=== PATIENT | female | born 1990 | race Caucasian/White ===

== ENCOUNTER 2022-11-26 16:29 | Emergency (ER) | payer BC, SELFPAY ==
[2022-11-26] VITALS (10 sets, daily range): BP systolic 121–148; BP diastolic 82–92; PULSE 83–102; RESP 12–20; TEMP 36.4; O2SAT 97–100
--- NOTE | ~2022-11-26 | CT_ITS ---
EXAMINATION: CTA chest PE protocol DATE: 11/26/2022 20:39 INDICATION: Midsternal chest pain. TECHNIQUE: Computed tomography angiography (CTA) of the chest was performed with 100 mL Omnipaque-350 intravenous contrast timed to evaluate the pulmonary arteries. Coronal maximum intensity projection 3D-reconstructions were created by the technologist. Automated exposure control and iterative reconst ruction technique were employed. The dose-length product was 598.94 mGy-cm. COMPARISON: CT abdomen and pelvis 07/30/2019 FINDINGS: There is mild dependent atelectasis bilaterally. No pleural effusion. The heart size is nor mal. No pericardial effusion. There is a small sliding hiatal hernia. There is mild thoracic spondylo sis. IMPRESSION: 1. No pulmonary embolus. Reviewed, dictated and finalized at location A. AINABILITY CONSULTANT IMPRESSION: 1. No pulmonary embolus.
--- NOTE | ~2022-11-26 | XR_ITS ---
EXAMINATION: XR chest 2V DATE: 11/26/2022 17:19 INDICATION: Midsternal chest pain. TECHNIQUE: Frontal and lateral views of the chest were obtained. COMPARISON: Chest 2 views 12/18/2005 FINDINGS: The chest demonstrates clear lungs without pneumonia, pleural effusion, or pneumothorax. Th e heart size is normal. IMPRESSION: 1. No acute cardiopulmonary disease. Reviewed, dictated and finalized at location A. FOREMAN
--- NOTE | 2022-11-26 16:30 | ECG_ITS ---
Measurements Intervals [place] Rate: 93 P: 39 RI: 148 QRS: 46 QRSD: 92 T: 24 QT: 353 QTc: 440 Interpretive Statements SINUS RHYTHM NORMAL ECG NO PREVIOUS ECG AVAILABLE FOR COMPARISON Electronically Signed On 11-27-2022 7:51:12 CEMENT CAR DUMPER by Meliton Vizcaino M.D.
[2022-11-26 16:47] LABS: Basophils Percent Auto 0.2 % (0.2-1.2); Eosinophils Absolute Auto 0.1 K/mm3 (0-0.3); Eosinophils Percent Auto 1.6 % (0-4.4); Hematocrit 41.1 % (37.0-47.0); Hemoglobin 14.3 g/dL (12.0-15.0); Immature Granulocyte Absolute 0.01 K/mm3 (0.00-0.031); Immature Granulocyte Percent A 0.1 % (0-0.5); Lymphocytes Absolute Auto 2.74 K/mm3 (0.9-3.2); Mean Corpuscular HGB Conc 34.8 g/dl (32-36); Mean Corpuscular Hemoglobin 31.2 pg (26-34); Mean Corpuscular Volume 89.5 fl (80-100); Mean Platelet Volume 9.3 fl (7.4-10.4); Monocytes Absolute Auto 0.6 K/mm3 (0.1-0.6); Monocytes Percent Auto 7.8 % (2.6-8.5); Neutrophils Absolute Auto 4.5 K/mm3 (1.3-6.7); Neutrophils Percent Auto 56.3 % (45.5-73.1); Platelet Count Result 241 k/mm3 (150-375); Red Blood Count 4.59 M/mm3 (4.2-5.4); Red Cell Distribution Width 12.2 % (11.5-14.5); White Blood Count 8.1 K/mm3 (4.5-10.0)
[2022-11-26 16:58] LABS: Partial Thromboplastin Time 26.6 SECONDS (22.3-36.8); Prothrombin Time 12.6 Seconds (11.1-14.7)
[2022-11-26 17:00] LABS: Alanine Aminotransferase 32 U/L (6-35); Albumin Level 4.5 g/dL (3.5-5.1); Alkaline Phosphatase 82 U/L (38-126); Anion Gap 5 mmol/L (8-16); Aspartate Amino Transferase 26 U/L (14-36); Bilirubin,Total 0.7 mg/dL (0.2-1.3); Blood Urea Nitrogen 12 mg/dL (7-17); Calcium 8.8 mg/dL (8.4-10.2); Carbon Dioxide 29 mmol/L (22-30); Chloride 101 mmol/L (98-107); Estimated CRCL calculation 87 ml/min; Estimated Glomerular Filt Rate > 60; Glucose 82 mg/dL (65-110); Lipase 98 U/L (23-300); Potassium 3.8 mmol/L (3.4-5.0); Sodium 135 mmol/L (137-145)
[2022-11-26 17:12] LABS: Troponin I < 0.012 ng/mL (0.000-0.034)
[2022-11-26] MEDS: ASPIRIN 81 MG CHEWABLE TABLET 324 MG PO (18:38)
--- NOTE | 2022-11-26 19:12 | PC.NURSE ---
Assumed pt care from ZACKARY Petersen
--- NOTE | 2022-11-26 19:40 | ED.GENADULT ---
HPI - General Adult General Chief complaint: Chest Pain Stated complaint: chest pain Time Seen by Provider: 11/26/22 19:26 History of Present Illness HPI narrative: Patient 32-year-old female who presents the emergency department with chief complaint of chest pain. Patient reports for the last several days she has been having pain in her chest mostly on the right sternal border. The patient states pain is worse with inspiration and worse with movement. Patient denies trauma denies fever denies cough patient reports no diaphoresis reports that she does have an uncomfortable feeling in her back. Patient denies prior cardiac disease reports no family history of early cardiac disease Related Data Allergies Allergy/AdvReac Type Severity Reaction Status Date / Time No Known Drug Allergies Allergy Unknown Unknown Verified 11/26/22 18:56 Review of Systems Review of Systems: A 10 system review of systems was completed on the patient and is negative except for what is stated in the HPI. Nursing and ancillary documentation was reviewed. Exam Narrative: GENERAL: Well-appearing, well-nourished, and in no acute distress. HEAD: Normocephalic, atraumatic. EYES: PERRLA and EOMI. ENT: Nares clear, no rhinorrhea or epistaxis. Mucous membranes moist. NECK: Supple. CHEST: Clear to auscultation. No respiratory distress. Tenderness to palpation of the right sternal border HEART: Regular rate and rhythm. No murmur heard. Normal peripheral pulses. ABDOMEN: Soft, nontender, nondistended, normal active bowel sounds. EXTREMITIES: Normal range of motion. No edema. SKIN: Warm, dry, no rash. NEURO: No focal deficits. Alert and oriented x3. PSYCH: Normal mood and affect. Course Vital Signs Vital signs: Vital Signs Temperature 36.4 C 11/26/22 16:30 Pulse Rate 88 11/26/22 16:30 Respiratory Rate 18 11/26/22 16:30 Blood Pressure 148/88 H 11/26/22 16:30 Pulse Oximetry 100 11/26/22 16:30 Oxygen Delivery Room Air 11/26/22 16:30 Temperature 36.4 C 11/26/22 16:30 Pulse Rate 86 11/26/22 20:01 Respiratory Rate 12 11/26/22 20:01 Blood Pressure 123/82 11/26/22 20:01 Pulse Oximetry 98 11/26/22 20:01 Oxygen Delivery Room Air 11/26/22 18:33 Medical Decision Making MDM Narrative Medical decision making narrative: Differential diagnosis includes ACS, pleurisy, chest wall pain, costochondritis, pulmonary embolism. EKG interpreted by me as sinus rhythm rate of [address] elevation or ST depression Laboratory studies were obtained that showed normal electrolytes with normal LFTs normal lipase initial troponin was less than 0.02 D-dimer was elevated and a CTA chest was ordered. Chest x-ray interpreted by the radiologist and reviewed by me showed no acute findings CTA chest showed no evidence of pulmonary embolism Patient is feeling much better after receiving Toradol. Vital Signs Vital Signs: Vital Signs Temperature 36.4 C 11/26/22 16:30 Pulse Rate 88 11/26/22 16:30 Respiratory Rate 18 11/26/22 16:30 Blood Pressure 148/88 H 11/26/22 16:30 Pulse Oximetry 100 11/26/22 16:30 Oxygen Delivery Room Air 11/26/22 16:30 Temperature 36.4 C 11/26/22 16:30 Pulse Rate 86 11/26/22 20:01 Respiratory Rate 12 11/26/22 20:01 Blood Pressure 123/82 11/26/22 20:01 Pulse Oximetry 98 11/26/22 20:01 Oxygen Delivery Room Air 11/26/22 18:33 Lab Data 11/26/22 16:40 11/26/22 16:40 Labs: Lab Results 11/26/22 11/26/22 11/26/22 Range/Units 16:40 16:40 16:40 WBC 8.1 (4.5-10.0) K/mm3 RBC 4.59 (4.2-5.4) M/mm3 Hgb 14.3 (12.0-15.0) g/dL Hct 41.1 (37.0-47.0) % MCV 89.5 (80-100) fl MCH 31.2 (26-34) pg MCHC 34.8 (32-36) g/dl RDW 12.2 (11.5-14.5) % Plt Count 241 (150-375) k/mm3 MPV 9.3 (7.4-10.4) fl Immature Gran % (Auto) 0.1 (0-0.5) % Neut % (Auto) 56.3 (45.5-73.1) % Lymph % (Auto) 34.0
[2022-11-26] MEDS: KETOROLAC 30 MG/ML VIAL (*BKC) IV PUSH (19:59)
[2022-11-26 20:10] LABS: Troponin I < 0.012 ng/mL (0.000-0.034)
[2022-11-26 20:14] LABS: D Dimer > 20.00 ug/mL (<0.48)
[2022-11-26 21:11] LABS: Appearance Urine Clear (Clear); Bacteria Urine 2+ /hpf; Bilirubin Urine Negative (Negative); Blood Urine Negative (Negative); Color Urine Yellow (Yellow); Glucose Urine UA Negative (Negative); Ketones Urine Trace mg/dL (Negative); Leukocyte Esterase Ur Trace LEU/UL (Negative); Nitrate Urine Negative (Negative); Non Pathogenic Casts 0-2; Protein Urine Negative (Negative); RBC Urine 0-2 /hpf (0-2); Specific Grav Ur 1.025 (1.001-1.035); Squamous Epithelial Cell Urine Few /hpf (Few); pH Urine 6.5 (5.0-9.0)
[2022-11-26 21:21] LABS: Add Urine Microscopic? YES
== END 2022-11-26 21:45 | disposition home or self-care (01) ==
PROVIDERS: Emergency Medicine; Emergency Provider Emergency Medicine; PCP Internal Medicine
DX: M94.0 Chondrocostal junction syndrome [Tietze] (principal)
CPT/HCPCS: 36415; 71046; 71275; 80053; 81001; 81025; 83690; 84484; 85025; 85380; 85610; 85730; 93005; 96374; 99284; A9270; J1885; Q9967

== ENCOUNTER 2022-12-01 10:35 | Outpatient (CLI) | payer BC, SELFPAY ==
[2022-12-02 01:06] LABS: Kit Draw Collected
== END 2022-12-01 10:36 | disposition home or self-care (01) ==
LOC: ANHGOSHLAB 10:37
PROVIDERS: PCP Internal Medicine; Visit Provider Clinical Nurse Specialist
DX: Z13.220 Encounter for screening for lipoid disorders (principal); E55.9 Vitamin D deficiency, unspecified; F41.9 Anxiety disorder, unspecified
CPT/HCPCS: 36415

== ENCOUNTER 2022-12-09 15:36 | Outpatient (CLI) | payer BC, SELFPAY ==
--- NOTE | ~2022-12-09 | US_ITS ---
EXAMINATION: US venous doppler UE DATE: 12/09/2022 16:45 INDICATION: Other specified abnormal findings of blood chemistry. TECHNIQUE: Grayscale ultrasound images without and with compression and Doppler ultrasound images of the bilateral upper extremity veins were obtained. COMPARISON: None. FINDINGS: The visualized portions of the right internal jugular vein, subclavian vein, axillary vein, brachial veins, basilic vein, cephalic vein, radial vein, and ulnar vein are patent. The visualized portions of the left internal jugular vein, subclavian vein, axillary vein, brachial v eins, basilic vein, cephalic vein, radial vein, and ulnar vein are patent. IMPRESSION: 1. No deep venous thrombosis. Reviewed, dictated and finalized at location A. ER CULTURIST
--- NOTE | ~2022-12-09 | US_ITS ---
EXAMINATION: US venous doppler [facility] DATE: 12/09/2022 16:45 INDICATION: Other specified abnormal findings of blood chemistry. TECHNIQUE: Grayscale ultrasound images without and with compression and Doppler ultrasound images of the bilateral lower extremity veins were obtained. COMPARISON: None. FINDINGS: The visualized portions of right common femoral vein, profunda (deep) femoral vein, femoral vein, pop liteal vein, peroneal veins, posterior tibial veins, and greater saphenous vein outflow are patent. The visualized portions of left common femoral vein, profunda femoral vein, femoral vein, popliteal v ein, peroneal veins, posterior tibial veins, and greater saphenous vein outflow are patent. IMPRESSION: 1. No deep venous thrombosis. Reviewed, dictated and finalized at location A. HELP DESK ANALYST
== END 2022-12-09 15:37 | disposition home or self-care (01) ==
PROVIDERS: PCP Internal Medicine; Visit Provider Clinical Nurse Specialist
DX: R79.89 Other specified abnormal findings of blood chemistry (principal)
CPT/HCPCS: 93970

== ENCOUNTER 2023-11-11 09:41 | Outpatient (CLI) | payer BC, SELFPAY ==
--- NOTE | ~2023-11-11 | XR_ITS ---
Left Knee Technique: AP, lateral, and oblique views were obtained. Clinical History: Pain Findings: No fracture or dislocation is seen. Osseous alignment is anatomic. Joint spaces are preserv ed without degenerative or erosive change. Soft tissues are unremarkable. No joint effusion is seen. Impression: Unremarkable left knee radiographs. Reviewed, dictated and finalized at [facility]. TRICIAN YARD Impression: Unremarkable left knee radiographs.
== END 2023-11-11 09:42 | disposition home or self-care (01) ==
PROVIDERS: PCP Internal Medicine; Visit Provider Chiropractor
DX: M25.562 Pain in left knee (principal)
CPT/HCPCS: 73562

== ENCOUNTER → 2023-11-18 10:35 | Outpatient (CLI) | payer BC, SELFPAY ==
--- NOTE | ~2023-11-18 | MR_ITS ---
MRI of the left knee Clinical history: Medial meniscus tear Technique: Coronal proton density and proton density-weighted images, sagittal proton-density and T2 fat-sat images, and axial proton-density fat-saturated images were acquired. Findings: Anterior and posterior cruciate ligaments are intact. Medial collateral ligament and latera l collateral ligament complex are intact. Popliteus tendon is intact. Medial and lateral menisci are intact, without evidence of tear. Articular cartilage is well preserved throughout the knee. Bone marrow signals are unremarkable. Extensor mechanism is intact. No joint effusion or Mcclain's cyst. There is mild edematous change of th e quadriceps fat pad. Impression: Mild edematous change of the quadriceps fat pad could reflect impingement. No ligamentous injury or meniscal tear. Reviewed, dictated and finalized at location . CLEANING ATTENDANT Impression: Mild edematous change of the quadriceps fat pad could reflect impingement. No ligamentous injury or meniscal tear.
== END ==
PROVIDERS: PCP Clinical Nurse Specialist; Visit Provider Chiropractor
DX: S83.242A Other tear of medial meniscus, current injury, left knee, initial encounter (principal); X58.XXXA Exposure to other specified factors, initial encounter
CPT/HCPCS: 73721

== ENCOUNTER 2023-12-07 08:28 | Outpatient (CLI) | payer BC, SELFPAY ==
[2023-12-07 18:51] LABS: Basophils Percent Auto 0.4 % (0.2-1.2); Eosinophils Absolute Auto 0.2 K/mm3 (0-0.3); Eosinophils Percent Auto 2.3 % (0-4.4); Hematocrit 44.3 % (37.0-47.0); Hemoglobin 13.9 g/dL (12.0-15.0); Immature Granulocyte Absolute 0.02 K/mm3 (0.00-0.031); Immature Granulocyte Percent A 0.3 % (0-0.5); Lymphocytes Absolute Auto 2.12 K/mm3 (0.9-3.2); Lymphocytes Percent Auto 27.4 % (18.3-44.2); Mean Corpuscular HGB Conc 31.4 g/dl (32-36); Mean Corpuscular Hemoglobin 29.8 pg (26-34); Mean Corpuscular Volume 94.9 fl (80-100); Mean Platelet Volume 9.7 fl (7.4-10.4); Monocytes Absolute Auto 0.6 K/mm3 (0.1-0.6); Monocytes Percent Auto 8.3 % (2.6-8.5); Neutrophils Absolute Auto 4.7 K/mm3 (1.3-6.7); Neutrophils Percent Auto 61.3 % (45.5-73.1); Platelet Count Result 251 k/mm3 (150-375); Red Blood Count 4.67 M/mm3 (4.2-5.4); Red Cell Distribution Width 12.8 % (11.5-14.5); White Blood Count 7.7 K/mm3 (4.5-10.0)
[2023-12-07 19:46] LABS: LDL Cholesterol Direct 128 mg/dL
[2023-12-07 20:47] LABS: Vitamin D 25 Hydroxy 29.8 ng/mL
[2023-12-07 21:06] LABS: Alanine Aminotransferase 26 U/L (6-35); Albumin Level 4.2 g/dL (3.5-5.1); Alkaline Phosphatase 83 U/L (38-126); Anion Gap 5 mmol/L (8-16); Aspartate Amino Transferase 46 U/L (14-36); Bilirubin,Total 0.9 mg/dL (0.2-1.3); Blood Urea Nitrogen 12 mg/dL (7-17); Calcium 9.2 mg/dL (8.4-10.2); Carbon Dioxide 31 mmol/L (22-30); Chloride 103 mmol/L (98-107); Cholesterol 211 mg/dL (0-200); Estimated Glomerular Filt Rate > 60; Glucose 71 mg/dL (65-110); HDL Direct 36 mg/dL; Potassium 4.5 mmol/L (3.4-5.0); Sodium 139 mmol/L (137-145); Triglycerides 156 mg/dL (<150)
== END 2023-12-07 08:29 | disposition home or self-care (01) ==
LOC: ANHGOSHLAB 08:31
PROVIDERS: PCP Clinical Nurse Specialist; Visit Provider Clinical Nurse Specialist
DX: E55.9 Vitamin D deficiency, unspecified (principal); F41.9 Anxiety disorder, unspecified; Z13.220 Encounter for screening for lipoid disorders; Z13.29 Encounter for screening for other suspected endocrine disorder
CPT/HCPCS: 36415; 80053; 80061; 82306; 84443; 85025

== ENCOUNTER 2024-02-02 16:20 | Outpatient (CLI) | payer BC, SELFPAY ==
--- NOTE | ~2024-02-02 | XR_ITS ---
EXAMINATION: XR soft tissue neck DATE: 02/02/2024 17:01 INDICATION: Foreign body ingestion. TECHNIQUE: 2 views of the neck soft tissues were obtained. COMPARISON: None. FINDINGS: The adenoids, palatine tonsils, epiglottis, prevertebral soft tissues, and glottis are norm al. IMPRESSION: 1. No radiopaque foreign body. Reviewed, dictated and finalized at location E.
--- NOTE | ~2024-02-02 | XR_ITS ---
EXAMINATION: XR abdomen/kub 1V DATE: 02/02/2024 17:01 INDICATION: Foreign body ingestion. TECHNIQUE: An upright view of the abdomen on 3 radiographs was obtained. COMPARISON: CT abdomen and pelvis 07/30/2019 FINDINGS: There are no dilated loops of bowel. Foreign bodies overlying the lower abdomen are part of the patient's clothing. IMPRESSION: 1. No ingested foreign body. Reviewed, dictated and finalized at location E.
--- NOTE | ~2024-02-02 | XR_ITS ---
EXAMINATION: XR chest 1V DATE: 02/02/2024 17:01 INDICATION: Foreign body ingestion. TECHNIQUE: A single frontal view of the chest was obtained. COMPARISON: Chest 2 views 11/26/2022 FINDINGS: There is no pneumonia, pleural effusion, or pneumothorax. The heart size is normal. IMPRESSION: 1. No radiopaque foreign body. Reviewed, dictated and finalized at location E.
== END 2024-02-02 16:21 | disposition home or self-care (01) ==
LOC: ANHIMG 16:22
PROVIDERS: PCP Clinical Nurse Specialist; Visit Provider Clinical Nurse Specialist
DX: T18.9XXA Foreign body of alimentary tract, part unspecified, initial encounter (principal)
CPT/HCPCS: 70360; 71045; 74018

== ENCOUNTER 2024-05-15 09:39 | Outpatient (CLI) | payer BC, SELFPAY ==
--- NOTE | 2024-06-07 16:59 | WPDHOMESLEEP ---
Sleep Study - Home Unattended Date of Study: 05/15/24 <Marti Llanos MD - Last Filed: 06/13/24 13:10> Ordering Provider: HESHAM Murcia <Marti Llanos MD - Last Filed: 06/13/24 13:10> Interpreting Provider: Marti Llanos MD <Marti Llanos MD - Last Filed: 06/13/24 13:10> Home Sleep Study Type: Watch PAT <Marti Llanos MD - Last Filed: 06/13/24 13:10> Height: 1.65 m <Marti Llanos MD - Last Filed: 06/13/24 13:10> Weight: 104.78 kg <Marti Llanos MD - Last Filed: 06/13/24 13:10> Body Mass Index: 38.4 <Marti Llanos MD - Last Filed: 06/13/24 13:10> 38.4 <Jeanne Brito DO - Last Filed: 06/13/24 12:30> Neck Circumference (inches): 16 <Marti Llanos MD - Last Filed: 06/13/24 13:10> [place]: 11 <Marti Llanos MD - Last Filed: 06/13/24 13:10> Reason for Sleep Study Hypersomnolence <Marti Llanos MD - Last Filed: 06/13/24 13:10> Sleep History Candy Briseno is a 33-year-old woman with excessive daytime sleepiness. Her main sleep complaints include loud snoring, witnessed apneas and difficulty staying asleep through the night. She estimates getting 8 hours of sleep at night. It takes the patient about 45 minutes to fall asleep. Her normal awakening time is 6:15 a.m. not using an alarm clock. She does not use sleep medication to initiate sleep. She wakes twice at night to go to the bathroom. She chokes and gasps at night, she has difficulty breathing while she is on her back and she awakens with morning headaches. She does not awaken with a dry mouth or sore throat. She does not have heartburn at night. She has difficulty falling asleep as well as staying asleep. She has difficulty returning to sleep after awakening. She sometimes awakens earlier than desired. She has use sedative hypnotics in the past. She does not have anxiety about going to sleep. She clenches her teeth and grinds her teeth at night. She has fatigue and daytime sleepiness. She is not refreshed upon awakening. She does experience drowsiness while driving. Normal bedtime is 9:30 p.m., falls asleep within 30-45 minutes, spent 8 hours in bed but only 6 hours of sleep. On weekends, schedule is similar, bedtime is 10:30 p.m., she falls asleep within 15 minutes, spent 8 hours in bed and estimates 7 hours sleeping. She does not take naps. Her insomnia severity index score is 17 which is consistent with clinical insomnia. She has mild difficulty falling asleep, moderate difficulty staying asleep and moderate difficulty waking up too early in the morning. She is dissatisfied with her current sleep pattern. This is significantly interfering with her daily function functioning and it is noticeable that other people. She has significant worry about her sleep. Habits:??Tobacco: none Caffeine: none Alcohol: 1-2 nights a week, 2 glasses Recreational substances: none <Marti Llanos MD - Last Filed: 06/13/24 13:10> [facility] Past Medical History Medical History: Medical History Anxiety Elevated blood pressure reading Obesity, Class III, BMI 40-49.9 (morbid obesity) <Marti Llanos MD - Last Filed: 06/13/24 13:10> Social History Social History: Social History Smoking status: Never smoker Lack of Transportation: No Lack of Food: Never True Current Housing: I Have Housing Concerned About Future Housing: No Difficulty Paying Gas/Electric Bills: No Difficulty Paying for Meds: No Currently Unemployed: No Education: High School Diploma/GED Difficulty w/ Childcare or Family Care: No Living arrangements: with family Additional living arrangements comments: with <Marti Llanos MD - Last Filed: 06/13/24 13:10> Medications Home Medications: Home
[2024-06-13 13:10] VITALS: BMI 38.4
== END 2024-05-16 10:58 | disposition home or self-care (01) ==
PROVIDERS: PCP Clinical Nurse Specialist; Visit Provider Clinical Nurse Specialist
DX: G47.10 Hypersomnia, unspecified (principal); G47.33 Obstructive sleep apnea (adult) (pediatric)
CPT/HCPCS: 95800

== ENCOUNTER 2025-08-08 14:50 | Outpatient (CLI) | payer BC, SELFPAY ==
[2025-08-08 19:44] LABS: Hematocrit 39.6 % (37.0-47.0); Hemoglobin 13.4 g/dL (12.0-15.0); Immature Granulocyte Percent A 0.1 % (0-0.5); Lymphocytes Absolute Auto 2.64 K/mm3 (0.9-3.2); Mean Corpuscular HGB Conc 33.8 g/dl (32-36); Mean Corpuscular Hemoglobin 30.5 pg (26-34); Mean Corpuscular Volume 90.0 fl (80-100); Nucleated Red Blood Cells Absolute Auto 0.000 K/mm3 (0.0-0.012); Nucleated Red Blood Cells Perc 0.0 % (0.0-0.2); Platelet Count Result 228 k/mm3 (150-375); Red Blood Count 4.40 M/mm3 (4.2-5.4); White Blood Count 7.6 K/mm3 (4.5-10.0)
[2025-08-08 19:59] LABS: Cholesterol 189 mg/dL (0-200); HDL Direct 48 mg/dL; Triglycerides 104 mg/dL (<150)
[2025-08-08 20:36] LABS: Thyroid Stimulating Hormone 1.470 uIU/mL (0.465-4.680)
[2025-08-08 20:55] LABS: Vitamin B12 291.0 pg/mL (239-931)
== END 2025-08-08 14:51 | disposition home or self-care (01) ==
LOC: ANHGOSHLAB 14:51
PROVIDERS: PCP Clinical Nurse Specialist; Visit Provider Clinical Nurse Specialist
DX: Z13.220 Encounter for screening for lipoid disorders (principal); Z13.29 Encounter for screening for other suspected endocrine disorder; E55.9 Vitamin D deficiency, unspecified; F41.9 Anxiety disorder, unspecified
CPT/HCPCS: 36415; 80061; 82306; 82607; 84443; 85025